=== PATIENT | female | born 1995 | race Caucasian/White ===

== ENCOUNTER 2024-01-31 12:50 | Emergency (ER) | payer OTHER ==
--- NOTE | 2024-01-31 12:58 | ERPHSYRPT ---
- History of Present Illness Time Seen by Provider: 01/31/24 12:57 Historian: patient Exam Limitations: no limitations Physician History: This is a thin 28-year-old white female patient who was sent to our emergency department from Dr. Wong office because of findings of tachycardia on EKG that was performed at their office. Patient states she has had chest pain and intermittent dizziness for 3 days in the upper chest. Upon arrival to our emergency department, patient is in no distress. Her room air oxygen saturation level is 99%. She has a heart rate in the 60s beats per minute on the monitor. She still has some mild upper bilateral chest achiness and pressure but not as bad as earlier today. Patient has a history of POTS syndrome and has had 2 cardiac arrests in the past. Her machine brush maker is Dr. Amos. She has an appointment to see Dr. Amos in 2 days Timing/Duration: day(s) (3), worse Quality: aching, pressure Location: other (Upper bilateral chest) Severity of Pain-Max: moderate Severity of Pain-Current: mild Modifying Factors: Improves With: nothing Associated Symptoms: dizziness Nitro Today/Relief: no nitro taken today Aspirin Treatment Today: 81 mg x 4, provided by ED Allergies/Adverse Reactions: codeine Allergy (Verified 01/31/24 12:56) mushroom Allergy (Verified 01/31/24 12:56) Travel Risk - International Travel Have you traveled outside of the country in past 3 weeks: No - Emerging Infectious Disease Are you exhibiting symptoms associated with any current EIDs: No - Review of Systems Constitutional: No Symptoms Eyes: No Symptoms Ears, Nose, & Throat: No Symptoms Respiratory: No Symptoms Cardiac: Chest Pain (Described as bilateral upper chest achiness and pressure without radiation) Abdominal/Gastrointestinal: No Symptoms Genitourinary Symptoms: No Symptoms Musculoskeletal: No Symptoms Skin: No Symptoms Neurological: Dizziness Psychological: No Symptoms Endocrine: No Symptoms Hematologic/Lymphatic: No Symptoms Immunological/Allergic: No Symptoms All Other Systems: Reviewed and Negative - Past Medical History Pertinent Past Medical History: Yes - Past Surgical History Past Surgical History: Yes - Nursing Vital Signs Nursing Vital Signs: Initial Vital Signs Temperature 98.5 F 01/31/24 12:56 Pulse Rate 60 01/31/24 12:56 Respiratory Rate 20 01/31/24 12:56 Blood Pressure 135/87 01/31/24 12:56 O2 Sat by Pulse Oximetry 100 05/06/24 12:56 Pain Scale Pain Intensity 5 - Physical Exam General Appearance: no apparent distress, alert, anxiety, thin Eye Exam: PERRL/EOMI, eyes nml inspection Ears, Nose, Throat Exam: normal ENT inspection, moist mucous membranes Neck Exam: normal inspection, non-tender, supple, full range of motion Respiratory Exam: normal breath sounds, chest tenderness, lungs clear (Mild up per bilateral chest pressure), airway intact, No respiratory distress Cardiovascular Exam: regular rate/rhythm, normal heart sounds, normal peripheral pulses Gastrointestinal/Abdomen Exam: soft, normal bowel sounds, No tenderness Pelvic Exam: not done Rectal Exam: not done Back Exam: normal inspection, normal range of motion, No CVA tenderness, No vertebral tenderness Extremity Exam: normal inspection, normal range of motion, pelvis stable Neurologic Exam: alert, oriented x 3, cooperative, machine stuffer automatic II-XII nml as tested, nml cerebellar function, nml station & gait, sensation nml Skin Exam: normal color, warm, dry Lymphatic Exam: No adenopathy SpO2 Interpretation: normal O2 Delivery: Room Air - Course Nursing assessment & vital signs reviewed: Yes EKG Interpreted by Me: RATE (55), Sinus Rhythm, NORMAL AXIS, NORMAL INTERVALS, NORMAL QRS, Other (Acute ischemic changes on this current twelve-lead EKG.) Ordered Tests: Active Orders 24 hr Category Date Time Status Rating Specialist STAT Care 01/31/24 13:09 Active EKG-ER Only STAT Care 01/31/24 13:08 Active IV Insertion STAT Care 01/31/24 13:08 Active Pulse Oximetry (ED) STAT Care 01/31/24 13:08 Active CHEST 1 VIEW (PORTABLE) Stat Exams 01/31/24 13:09 Completed CBC W DIFF Stat Lab 01/31/24 13:08 Completed CMP Stat Lab 01/31/24 13:00 Completed D-DIMER QUANTITATIVE Stat Lab 01/31/24 13:00 Completed MAGNESIUM Stat Lab 01/31/24 13:00 Completed TROPONIN Q4H Lab 01/31/24 17:15 Ordered TROPONIN Q4H Lab 01/31/24 21:15 Ordered TROPONIN Stat Lab 01/31/24 13:00 Completed Medication Summary Discontinued Medications Generic Name Dose Route Start Last Admin Trade Name Freq PRN Reason Stop Dose Admin Aspirin 324 mg 01/31/24 13:08 01/31/24 13:12 Aspirin 81 Mg Tab.Chew PO 01/31/24 13:09 324 mg STAT ONE Administration Aspirin Confirm 01/31/24 13:12 Aspirin 81 Mg Tab.Chew Administered 01/31/24 13:13 Dose 324 mg .ROUTE .STK-MED ONE Potassium Chloride 20 meq 01/31/24 14:54 Potassium Chloride Tab 10 Meq Tab PO 01/31/24 14:55 STAT ONE Lab/Rad Data: Laboratory Result Diagrams 01/31/24 13:08 01/31/24 13:00 Laboratory Results 01/31/24 01/31/24 01/31/24 Range/Units 13:08 13:00 13:00 WBC 5.6 (4.0-10.5) x10^3/uL RBC 4.59 (4.1-5.4) x10^6/uL Hgb 14.2 (12.0-16.0) g/dL Hct 42.4 (35-47) % MCV 92.4 (78-100) fL MCH 30.9 (26-32) pg MCHC 33.5 (32-36) g/dL RDW 11.9 (11.5-14.0) % Plt Count 275 (150-450) x10^3/uL MPV 10.0 (7.5-11.0) fL Gran % 60.0 (36.0-66.0) % Immature Gran % (Auto) 0.2 (0.00-0.4) % Nucleat RBC Rel Count 0.0 (0.00-0.1) % Eos # (Auto) 0.04 (0-0.5) x10^3/uL Immature Gran # (Auto) 0.01 (0.00-0.03) x10^3u/L Absolute Lymphs (auto) 1.63 (1.0-4.6) x10^3/uL Absolute Monos (auto) 0.54 (0.0-1.3) x10^3/uL Absolute Nucleated RBC 0.00 (0.00-0.01) x10^3u/L Lymphocytes % 29.2 (24.0-44.0) % Monocytes % 9.7 (0.0-12.0) % Eosinophils % 0.7 (0.00-5.0) % Basophils % 0.2 (0.0-0.4) % Absolute Granulocytes 3.35 (1.4-6.9) x10^3/uL Basophils # 0.01 (0-0.4) x10^3/uL D-Dimer < 0.19 (0.0-0.50) mg/L Sodium (135-145) mmol/L Potassium (3.5-5.1) mmol/L Chloride (98-107) mmol/L Carbon Dioxide (22-30) mmol/L Anion Gap (5-15) MEQ/L BUN (7-17) mg/dL Creatinine (0.52-1.04) mg/dL Estimated GFR ML/MIN Glucose (74-106) mg/dL Calcium (8.4-10.2) mg/dL Magnesium (1.6-2.3) mg/dL Total Bilirubin (0.2-1.3) mg/dL AST (14-36) U/L ALT (0-35) U/L Alkaline Phosphatase (38-126) U/L Troponin I < 0.012 (0.000-0.033) ng/mL Serum Total Protein (6.3-8.2) g/dL Albumin (3.5-5.0) g/dL 01/31/24 Range/Units 13:00 WBC (4.0-10.5) x10^3/uL RBC (4.1-5.4) x10^6/uL Hgb (12.0-16.0) g/dL Hct (35-47) % MCV (78-100) fL MCH (26-32) pg MCHC (32-36) g/dL RDW (11.5-14.0) % Plt Count (150-450) x10^3/uL MPV (7.5-11.0) fL Gran % (36.0-66.0) % Immature Gran % (Auto) (0.00-0.4) % Nucleat RBC Rel Count (0.00-0.1) % Eos # (Auto) (0-0.5) x10^3/uL Immature Gran # (Auto) (0.00-0.03) x10^3u/L Absolute Lymphs (auto) (1.0-4.6) x10^3/uL Absolute Monos (auto) (0.0-1.3) x10^3/uL Absolute Nucleated RBC (0.00-0.01) x10^3u/L Lymphocytes % (24.0-44.0) % Monocytes % (0.0-12.0) % Eosinophils % (0.00-5.0) % Basophils % (0.0-0.4) % Absolute Granulocytes (1.4-6.9) x10^3/uL Basophils # (0-0.4) x10^3/uL D-Dimer (0.0-0.50) mg/L Sodium 140 (135-145) mmol/L Potassium 3.3 L (3.5-5.1) mmol/L Chloride 103 (98-107) mmol/L Carbon Dioxide 25 (22-30) mmol/L Anion Gap 14.8 (5-15) MEQ/L BUN 10 (7-17) mg/dL Creatinine 0.62 (0.52-1.04) mg/dL Estimated GFR 123.6 ML/MIN Glucose 113 H (74-106) mg/dL Calcium 9.4 (8.4-10.2) mg/dL Magnesium 2.2 (1.6-2.3) mg/dL Total Bilirubin 0.70 (0.2-1.3) mg/dL AST 26 (14-36) U/L ALT 15 (0-35) U/L Alkaline Phosphatase 50 (38-126) U/L Troponin I (0.000-0.033) ng/mL Serum Total Protein 8.2 (6.3-8.2) g/dL Albumin 4.8 (3.5-5.0) g/dL - Progress Progress: improved, re-examined Air Movement: good Progress Note: 01/31/24 13:34 My medical decision making and the assignment of moderate complexity to this patient's medical issue is based on review of the patient's past medical history, review of the patient's medication list, review of patient drug allergy list, history present illness and physical findings on examination. The workup in this patient includes placement of intravenous line, repeat twelve-lead EKG, chest x-ray, troponin level, D-dimer level, CBC, CMP and magnesium level. Differential diagnosis includes myocardial infarction, arrhythmia issues, electrolyte abnormalities. 01/31/24 13:36 Chest x-ray was interpreted by the radiologist and I reviewed the impression. Impression states nonacute chest. 01/31/24 15:19 I interpreted the patient's laboratory data results. There is no evidence of any acute, emergent medical issue on today's workup. I spoke with Dr. Amos, the patient's machine brush maker who she has an appointment with in 2 days. I reviewed the patient history, chief complaint today, and workup results. He said no Holter monitor or repeat echocardiogram is necessary in this patient. He stated that she is young. He is aware of intermittent periods of tachycardia. They are making adjustments in her medication. She al so had an echocardiogram a year ago which showed no emergent or acute abnormality. She had a normal cardiac ejection fraction. He also will be seeing her in 2 days. 01/31/24 15:24 Patient was offered pain medication of her choice to help relieve her discomfort. She declines narcotic medication but does except nonnarcotic alternative. We will ask her whether or not she wants intravenous Toradol and oral Tylenol or oral ibuprofen and oral Tylenol Blood Culture(s) Obtained: No Antibiotics given: No Counseled pt/family regarding: lab results, diagnosis, need for follow-up, rad results Medical Desision Making - Diagnostic Testing Diagnostic test were ordered, analyzed, and reviewed by me: Yes Radiological Interpretation: Reviewed by me, Teleradiologist Report - Risk of complications Low Risk: Low risk of morbidity from additional dx testing or treatment - Departure Departure Disposition: Home Clinical Impression: Nonspecific chest pain Condition: Stable Critical Care Time: No Referrals: CEZAR WONG DO [Primary Care Provider] - Follow up/PCP as directed Additional Instructions: Take all your medications as prescribed. Keep your appointment with your machine brush maker that you already have scheduled for 02/02/2024.
[2024-01-31 13:06] VITALS: TEMP 98.5
[2024-01-31] MEDS: BABY ASPIRIN 81 MG CHEW PO ONE (13:12)
[2024-01-31] MEDS ORDERED: BABY ASPIRIN 81 MG CHEW ONE (13:12)
[2024-01-31 13:23] LABS: Absolute Neutrophil Ct (ANC) 3.35 x10^3/uL (1.4-6.9); BASOPHIL % 0.2 % (0.0-0.4); Basophil (Absolute #) 0.01 x10^3/uL (0-0.4); Eosinophil % 0.7 % (0.00-5.0); Eosinophil (Absolute #) 0.04 x10^3/uL (0-0.5); Hematocrit 42.4 % (35-47); Hemoglobin 14.2 g/dL (12.0-16.0); IMMATURE GRAN # 0.01 x10^3u/L (0.00-0.03); IMMATURE GRAN % 0.2 % (0.00-0.4); Lymphocyte (Absolute #) 1.63 x10^3/uL (1.0-4.6); Lymphocytes % 29.2 % (24.0-44.0); Mean Cell Volume 92.4 fL (78-100); Mean Corpuscular Hemoglobin 30.9 pg (26-32); Mean Corpuscular Hgb Concent. 33.5 g/dL (32-36); Monocyte (Absolute #) 0.54 x10^3/uL (0.0-1.3); Monocytes % 9.7 % (0.0-12.0); Platelet Count 275 x10^3/uL (150-450); Red Blood Count 4.59 x10^6/uL (4.1-5.4); Red Cell Distribution Width 11.9 % (11.5-14.0); White Blood Count 5.6 x10^3/uL (4.0-10.5)
--- NOTE | 2024-01-31 13:34 | XRAY ---
Indication: Chest pain. Short of breath. Dizziness. Comparison: None Portable chest inflated and clear. Heart and mediastinum structures within normal limits. Bony thorax intact with minimal scoliosis. Impression: Nonacute chest.
[2024-01-31 14:23] LABS: ALBUMIN 4.8 g/dL (3.5-5.0); ANION GAP 14.8 MEQ/L (5-15); BILIRUBIN,TOTAL 0.7 mg/dL (0.2-1.3); Calcium 9.4 mg/dL (8.4-10.2); Creatinine 1 0.62 mg/dL (0.52-1.04); EST GLOMERULAR FILTRATION RATE 123.6 ML/MIN; MAGNESIUM 2.2 mg/dL (1.6-2.3); Potassium 3.3 mmol/L (3.5-5.1); Total Protein 8.2 g/dL (6.3-8.2)
[2024-01-31] MEDS ORDERED: Klor Con ONE (15:22)
[2024-01-31] MEDS: Klor Con PO ONE (15:23)
[2024-01-31] MEDS ORDERED: Zofran 4 MG/2 ML VIAL ONE (15:32)
[2024-01-31] MEDS ORDERED: MORPHINE SULFATE 2 MG INJ ONE (15:32)
[2024-01-31] MEDS: MORPHINE SULFATE 2 MG INJ IV ONE (15:34)
[2024-01-31] MEDS: Zofran 4 MG/2 ML VIAL IV ONE (15:34)
[2024-01-31 15:52] VITALS: BP 126/72; PULSE 66; RESP 15; O2SAT 98
== END 2024-01-31 16:00 | disposition home or self-care (01) ==
LOC: ED 12:50
DX: R07.9 Chest pain, unspecified (principal); R42 Dizziness and giddiness; R00.0 Tachycardia, unspecified
CPT/HCPCS: 36000; 36415; 71045; 80053; 83735; 84484; 85025; 85379; 93005; 93041; 94760; 96374; 96375; 99284; J2270; J2405; A9270-GY

== ENCOUNTER 2024-03-06 22:28 | Observation (INO) | payer OTHER ==
--- NOTE | 2024-03-06 22:46 | ERPHSYRPT ---
- History of Present Illness Time Seen by Provider: 03/06/24 22:36 Source: patient Exam Limitations: no limitations Physician History: This is a 28-year-old white female patient who was brought in to the hospital by a relative by private vehicle. She has a history of pots disease and known bradycardia. She also has had cardiac arrest in the distant past. Her cardiol ogist is Dr. Amos and she did see him on 02/02/2024. Patient states that Dr. Amos had told her that there are no issues from the cardiac standpoint. Patient sees wellness ambassador (Dr. Dawson) and is soon to change her motor vehicle representative to Dr. Alexander. That appointment is not until March 2024. Patient was seen by her primary care provider earlier this morning. Patient was told to come to the emergency department but she refused. However, when her heart rate dropped to 36 bpm and she was feeling dizzy, she decided to come in to be evaluated. Patient had a twelve-lead EKG performed on 01/31/2024 which I reviewed and the patient had a heart rate of 55 and was in sinus bradycardia rhythm. There was no evidence of any acute ischemia on that twelve-lead EKG. She also underwent a Holter monitor which showed predominantly sinus bradycardia with an average heart rate of 51 bpm with rare PACs and PVCs. Patient is on metoprolol. She states they have tried to take her off metoprolol. It does not increase her low heart rate but, when she is off of the metoprolol, her heart rate jumps into a sinus tachycardia rhythm pattern. Patient currently does not have chest pain or dizziness. She is lying flat. Patient's room air oxygenation, saturation level is 99%. The patient's blood pressure reading on arrival is 144/77. The patient has a echocardiogram scheduled here at [facility] on 03/07/2024 at 1300. Timing/Duration: today Severity: moderate Associated Symptoms: other (Dizziness earlier), No shortness of breath, No chest pain Allergies/Adverse Reactions: codeine Allergy (Verified 03/06/24 22:34) mushroom Allergy (Verified 03/06/24 22:34) Home Medications: Aspirin EC 81 mg [Ecotrin 81 mg] 81 mg PO DAILY 01/31/24 [History] Ivabradine HCl [Corlanor] 5 mg PO BID 01/31/24 [History] Lurasidone HCl [Latuda] 20 mg PO DAILY 01/31/24 [History] Metoprolol Succinate 25 mg Xl* [Toprol-Xl 25MG Tablets] 25 mg PO BID 01/31/24 [History] Midodrine HCl [Proamatine] 5 mg PO TID 01/31/24 [History] Buspirone HCl 5 mg [Buspar 5 mg] 5 mg PO DAILY 03/06/24 [History] Cholecalciferol (Vitamin D3) [Vitamin D3] 125 mcg PO DAILY 03/06/24 [History] Hx Influenza Vaccination/Date Given: Yes Hx Pneumococcal Vaccination/Date Given: No Travel Risk - International Travel Have you traveled outside of the country in past 3 weeks: No - Emerging Infectious Disease Are you exhibiting symptoms associated with any current EIDs: No - Review of Systems Constitutional: No Symptoms Eyes: No Symptoms Ears, Nose, & Throat: No Symptoms Respiratory: No Symptoms Cardiac: No Symptoms Abdominal/Gastrointestinal: No Symptoms Genitourinary Symptoms: No Symptoms Musculoskeletal: No Symptoms Skin: No Symptoms Neurological: Dizziness Psychological: No Symptoms Endocrine: No Symptoms Hematologic/Lymphatic: No Symptoms Immunological/Allergic: No Symptoms All Other Systems: Reviewed and Negative - Past Medical History Pertinent Past Medical History: Yes Neurological History: No Pertinent History ENT History: No Pertinent History Cardiac History: No Pertinent History Respiratory History: No Pertinent History Endocrine Medical History: No Pertinent History Musculoskeletal History: No Pertinent History GI Medical History: No Pertinent History History: No Pertinent History Psycho-Social History: Anxiety, Attention Deficit Disorder, Depression Female Reproductive Disorders: No Pertinent History Other Medical History: Campuzano - Past Surgical History Past Surgical History: Yes Neuro Surgical History: No Pertinent History Cardiac: No Pertinent History Respiratory: No Pertinent History Gastrointestinal: No Pertinent History Genitourinary: No Pertinent History Musculoskeletal: No Pertinent History Female Surgical History: Dilation & Curettage - Social History Smoking Status: Never smoker Exposure to second hand smoke: No Drug Use: none - Social Determinants of Health Will the patient participate in the screening: Yes Do you worry about a steady place to live?: No In the past 12 months,have you had to go without utilities?: No Transportation Issues: No Has anyone in your support network made you feel unsafe?: No Have you or anyone in your house had to go without enough: No - Nursing Vital Signs Nursing Vital Signs: Initial Vital Signs Pulse Rate 38 L 03/06/24 22:35 Respiratory Rate 18 03/06/24 22:35 Blood Pressure 144/77 03/06/24 22:35 O2 Sat by Pulse Oximetry 100 03/06/24 22:35 Pain Scale Pain Intensity 0 - Physical Exam General Appearance: no apparent distress, alert, anxiety, thin Eye Exam: PERRL/EOMI, eyes nml inspection Ears, Nose, Throat Exam: normal ENT inspection, moist mucous membranes Neck Exam: normal inspection, non-tender, supple, full range of motion Respiratory Exam: normal breath sounds, lungs clear, No chest tenderness, No respiratory distress Gastrointestinal/Abdomen Exam: soft, normal bowel sounds, No tenderness Pelvic Exam: not done Rectal Exam: No not done Back Exam: normal inspection, normal range of motion, No CVA tenderness, No vertebral tenderness Extremity Exam: normal inspection, normal range of motion, pelvis stable Neurologic Exam: alert, oriented x 3, cooperative, stockroom worker II-XII nml as tested, normal mood/affect, nml cerebellar function, nml station & gait, sensation nml Skin Exam: normal color, warm, dry Lymphatic Exam: No adenopathy SpO2 Interpretation: normal O2 Delivery: Room Air - Course Nursing assessment & vital signs reviewed: Yes EKG Interpreted by Me: RATE (46), Sinus [place], NORMAL AXIS, NORMAL INTERVALS, NORMAL QRS, NORMAL ST-T, Other (No acute ischemic changes on today's twelve-lead EKG. the QTc is 384) Ordered Tests: Active Orders 24 hr Category Date Time Status Wage Conciliator STAT Care 03/06/24 22:56 Active EKG-ER Only STAT Care 03/06/24 22:55 Active IV Insertion STAT Care 03/06/24 22:55 Active Pulse Oximetry (ED) STAT Care 03/06/24 22:55 Active CBC W DIFF Stat Lab 03/06/24 23:00 Completed CMP Stat Lab 03/06/24 23:00 Completed HCG QUALITATIVE, SERUM Stat Lab 03/06/24 23:00 Completed MAGNESIUM Stat Lab 03/06/24 23:00 Completed NT PRO BNPII Stat Lab 03/06/24 23:00 Completed TROPONIN Q4H Lab 03/06/24 23:00 Completed TROPONIN Q4H Lab 03/07/24 03:00 Ordered TROPONIN Q4H Lab 03/07/24 07:00 Ordered UA W/RFX UR CULTURE Stat Lab 03/06/24 23:18 Received Lab/Rad Data: Laboratory Result Diagrams 03/06/24 23:00 03/06/24 23:00 Laboratory Results 03/06/24 03/06/24 03/06/24 Range/Units 23:00 23:00 23:00 WBC (3.98-10.04) x10^3/uL RBC (3.93-5.22) x10^6/uL Hgb (11.2-15.7) g/dL Hct (34.1-44.9) % MCV (79.4-94.8) fL MCH (25.6-32.2) pg MCHC (32.2-35.5) g/dL RDW (11.7-14.4) % Plt Count (182-369) x10^3/uL MPV (9.4-12.3) fL Gran % (34.0-71.1) % Immature Gran % (Auto) (0.001-0.429) % Nucleat RBC Rel Count (0.00-0.2) % Eos # (Auto) (0.04-0.36) x10^3/uL Immature Gran # (Auto) (0.001-0.031) x10^3u/L Absolute Lymphs (auto) (1.18-3.74) x10^3/uL Absolute Monos (auto) (0.24-0.86) x10^3/uL Absolute Nucleated RBC (0.00-0.012) x10^3u/L Lymphocytes % (19.3-51.7) % Monocytes % (4.7-12.5) % Eosinophils % (0.7-5.8) % Basophils % (0.1-1.2) % Absolute Granulocytes (1.56-6.13) x10^3/uL Basophils # (0.01-0.08) x10^3/uL Sodium 138 (135-145) mmol/L Potassium 4.0 (3.5-5.1) mmol/L Chloride 105 (98-107) mmol/L Carbon Dioxide 26 (22-30) mmol/L Anion Gap 11.1 (5-15) MEQ/L BUN 15 (7-17) mg/dL Creatinine 0.79 (0.52-1.04) mg/dL Estimated GFR 103.8 ML/MIN Glucose 94 (74-106) mg/dL Calcium 9.7 (8.4-10.2) mg/dL Magnesium 2.2 (1.6-2.3) mg/dL Total Bilirubin 0.70 (0.2-1.3) mg/dL AST 21 (14-36) U/L ALT 14 (0-35) U/L Alkaline Phosphatase 50 (38-126) U/L Troponin I < 0.012 (0.000-0.033) ng/mL NT-Pro-B Natriuret Pep 79.5 (<300) pg/mL Serum Total Protein 7.6 (6.3-8.2) g/dL Albumin 4.5 (3.5-5.0) g/dL Serum HCG, Qual NEGATIVE (NEGATIVE) 03/06/24 Range/Units 23:00 WBC 6.4 (3.98-10.04) x10^3/uL RBC 4.27 (3.93-5.22) x10^6/uL Hgb 13.4 (11.2-15.7) g/dL Hct 40.3 (34.1-44.9) % MCV 94.4 (79.4-94.8) fL MCH 31.4 (25.6-32.2) pg MCHC 33.3 (32.2-35.5) g/dL RDW 12.0 (11.7-14.4) % Plt Count 305 (182-369) x10^3/uL MPV 9.5 (9.4-12.3) fL Gran % 50.7 (34.0-71.1) % Immature Gran % (Auto) 0.3 (0.001-0.429) % Nucleat RBC Rel Count 0.0 (0.00-0.2) % Eos # (Auto) 0.06 (0.04-0.36) x10^3/uL Immature Gran # (Auto) 0.02 (0.001-0.031) x10^3u/L Absolute Lymphs (auto) 2.36 (1.18-3.74) x10^3/uL Absolute Monos (auto) 0.68 (0.24-0.86) x10^3/uL Absolute Nucleated RBC 0.00 (0.00-0.012) x10^3u/L Lymphocytes % 37.1 (19.3-51.7) % Monocytes % 10.7 (4.7-12.5) % Eosinophils % 0.9 (0.7-5.8) % Basophils % 0.3 (0.1-1.2) % Absolute Granulocytes 3.22 (1.56-6.13) x10^3/uL Basophils # 0.02 (0.01-0.08) x10^3/uL Sodium (135-145) mmol/L Potassium (3.5-5.1) mmol/L Chloride (98-107) mmol/L Carbon Dioxide (22-30) mmol/L Anion Gap (5-15) MEQ/L BUN (7-17) mg/dL Creatinine (0.52-1.04) mg/dL Estimated GFR ML/MIN Glucose (74-106) mg/dL Calcium (8.4-10.2) mg/dL Magnesium (1.6-2.3) mg/dL Total Bilirubin (0.2-1.3) mg/dL AST (14-36) U/L ALT (0-35) U/L Alkaline Phosphatase (38-126) U/L Troponin I (0.000-0.033) ng/mL NT-Pro-B Natriuret Pep (<300) pg/mL Serum Total Protein (6.3-8.2) g/dL Albumin (3.5-5.0) g/dL Serum HCG, Qual (NEGATIVE) - Progress Progress: improved, re-examined Progress Note: 03/06/24 22:53 My medical decision making and the assignment of moderate to high complexity on this patient's medical issue today is based on review of the patient's past medical history, review of the patient's medication list, review the patient drug allergy list, review of the patient's recent Holter monitor and twelve-lead EKG results. In addition we took into account the patient's physical findings on examination and history of present illness. The workup in this patient is placement of intravenous line, twelve-lead EKG, CBC, CMP, magnesium level, troponin level, BNP level. Differential diagnosis includes but is not limited to electrolyte abnormalities, arrhythmia, myocardial infarction 03/07/24 00:11 I interpreted the patient's laboratory data results. Based on the laboratory data results, this patient does not have an acute, emergent medical issue. The patient does have postural orthostatic tachycardia syndrome (POTS). She classically fits the picture. We will hold her cardiac meds and place her in observation on telemetry. I spoke with Dr. Patel, telehospitalist. He agrees with this plan. Patient will get her echocardiogram today as scheduled. Counseled pt/family regarding: lab results, diagnosis Medical Desision Making - Independent Historian Additional History obtained from: Relative/friend - Diagnostic Testing Diagnostic test were ordered, analyzed, and reviewed by me: Yes - Risk of complications The pt has a high risk of morbidity or mortality based on: Decision regarding hospitilization or escalation of hosp level of care - Departure Departure Disposition: Observation Clinical Impression: Symptomatic bradycardia Condition: Stable Critical Care Time: No Referrals: TARIK PERKINS NP [Primary Care Provider] - Follow up/PCP as directed
[2024-03-06 23:04] LABS: Absolute Neutrophil Ct (ANC) 3.22 x10^3/uL (1.56-6.13); BASOPHIL % 0.3 % (0.1-1.2); Basophil (Absolute #) 0.02 x10^3/uL (0.01-0.08); Eosinophil % 0.9 % (0.7-5.8); Eosinophil (Absolute #) 0.06 x10^3/uL (0.04-0.36); Hematocrit 40.3 % (34.1-44.9); Hemoglobin 13.4 g/dL (11.2-15.7); IMMATURE GRAN # 0.02 x10^3u/L (0.001-0.031); IMMATURE GRAN % 0.3 % (0.001-0.429); Lymphocyte (Absolute #) 2.36 x10^3/uL (1.18-3.74); Lymphocytes % 37.1 % (19.3-51.7); Mean Cell Volume 94.4 fL (79.4-94.8); Mean Corpuscular Hemoglobin 31.4 pg (25.6-32.2); Mean Corpuscular Hgb Concent. 33.3 g/dL (32.2-35.5); Mean Platelet Volume 9.5 fL (9.4-12.3); Monocyte (Absolute #) 0.68 x10^3/uL (0.24-0.86); Monocytes % 10.7 % (4.7-12.5); Neutrophil % 50.7 % (34.0-71.1); Platelet Count 305 x10^3/uL (182-369); Red Blood Count 4.27 x10^6/uL (3.93-5.22); White Blood Count 6.4 x10^3/uL (3.98-10.04)
[2024-03-06 23:23] LABS: HCG SERUM TEST NEGATIVE (NEGATIVE)
[2024-03-06 23:27] LABS: ALBUMIN 4.5 g/dL (3.5-5.0); ANION GAP 11.1 MEQ/L (5-15); BILIRUBIN,TOTAL 0.7 mg/dL (0.2-1.3); Calcium 9.7 mg/dL (8.4-10.2); Creatinine 1 0.79 mg/dL (0.52-1.04); EST GLOMERULAR FILTRATION RATE 103.8 ML/MIN; MAGNESIUM 2.2 mg/dL (1.6-2.3); NT PRO BNPII 79.5 pg/mL (<300); Total Protein 7.6 g/dL (6.3-8.2)
[2024-03-07] MEDS: Sodium Chloride 0.9% 1000 ML 1,000 ML IV SCH (00:33)
[2024-03-07 00:44] LABS: Appearance Clear (Clear); Bacteria None Seen /HPF (None Seen); Bilirubin Negative (Negative); Blood Negative (Negative); Epithelial Cells None Seen /HPF (None Seen); Glucose, Urine Negative (Negative); Hyaline Casts NONE SEEN /LPF (0-2); Ketones Negative (Negative); Leukocyte Esterase Negative (Negative); Nitrite Negative (Negative); Ph 7.5 (4.6-8.0); Protein,Urine Dip Negative (Negative); RBC 0-2 /HPF (0-5); Specific Gravity <=1.005 (1.005-1.030); Urobilinogen 0.2 mg/dL (0.2); WBC 0-2 /HPF (0-5)
[2024-03-07 00:45] LABS: ADD URINE CULTURE? NO (NO)
--- NOTE | 2024-03-07 01:29 | PCM.HP ---
History of Present Illness - Chief Complaint Chief Complaint: Symptomatic bradycardia Date: 03/07/24 History of Present Illness: 28-year-old woman with history of Postural orthostatic tachycardia syndrome (POTS), anxiety, depression, PTSD, who presents with persistent dizziness and nausea with severe bradycardia. Patient was diagnosed with POTS little over a year ago, and has slowly been added on more medications, initially metoprolol, the midodrine, and 3 months ago ivabradine. She feels like she had the best improvement after starting the ivabradine. She has a baseline heart rate in the 50s, but did not have many episodes of going up into the 180s on that medication regimen. However, starting 5 weeks ago, she began to have episodes of dizziness, nausea, diaphoresis, and dyspnea. She discussed with her cut roll machine operator at that time, but noted that there were a lot of anxiety and stressors in her life at that time. However, her symptoms have not improved, and her baseline heart rate has dropped down into the 40s, occasionally into the 30s. She attempted to stop her medications, but her baseline heart rate did not improve, and she again had recurrent episodes of tachycardia up to the 180s. Last week, she saw her PCP when she was having leg edema, and completed a 5-day course of Bumex ending on 03/04, with resolution of her leg edema. However, she continues to have severe constant dizziness with movement associated with nausea. 2 days ago, she had an episode of presyncope where her friend noted that her distal limbs appeared to be blue. She went to her PCP today and was told to come to the ED because her heart rate was sinus bradycardia in the 30s. On arrival to the ED, her blood pressure has been normal, but her heart rate has been consistently in the 40s, with sinus bradycardia on EKG. She feels stable in bed, but gets dizzy whenever sitting or standing. Denies any recent changes to her medications since starting the ivabradine 3 months ago. Denies fevers, chills, headaches, sore throat, cough, chest pain, diarrhea, or dysuria. No recent changes in diet, no sick contacts, and no recent travel. - Review of Systems Additional Findings: 12 point ROS performed and negative except as per HPI. Medications & Allergies Home Medications: Home Medication List Aspirin EC 81 mg [Ecotrin 81 mg] 81 mg PO DAILY 01/31/24 [History Confirmed 03/06/24] Ivabradine HCl [Corlanor] 5 mg PO BID 01/31/24 [History Confirmed 03/06/24] Lurasidone HCl [Latuda] 20 mg PO DAILY 01/31/24 [History Confirmed 03/06/24] Metoprolol Succinate 25 mg Xl* [Toprol-Xl 25MG Tablets] 25 mg PO BID 01/31/24 [History Confirmed 03/06/24] Midodrine HCl [Proamatine] 5 mg PO TID 01/31/24 [History Confirmed 03/06/24] Buspirone HCl 5 mg [Buspar 5 mg] 5 mg PO DAILY 03/06/24 [History Confirmed 03/06/24] Cholecalciferol (Vitamin D3) [Vitamin D3] 125 mcg PO DAILY 03/06/24 [History Confirmed 03/06/24] Allergies/Adverse Reactions: Allergies Allergy/AdvReac Type Severity Reaction Status Date / Time codeine Allergy Verified 03/06/24 22:34 mushroom Allergy Verified 03/06/24 22:34 - Past Medical History Past Medical History: Yes Neurological History: No Pertinent History ENT History: No Pertinent History Cardiac History: Other (POTS. 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.) Respiratory History: No Pertinent History Endocrine Medical History: No Pertinent History Musculoskelatal History: No Pertinent History GI Medical History: No Pertinent History History: No Pertinent History Pyscho-Social History: Anxiety, Attention Deficit Disorder, Depression Reproductive Disorders: No Pertinent History - Female History Hx Last Menstrual Period: 03/01/24 Are you now?: No - Past Surgical History Past Surgical History: Yes Neuro Surgical History: No Pertinent History Cardiac History: No Pertinent History Respiratory Surgery: No Pertinent History GI Surgical History: Cholecystectomy Genitourinary Surgical Hx: No Pertinent History Musculskeletal Surgical Hx: No Pertinent History Female Surgical History: Dilation & Curettage Significant Family History: other (Maternal grandmother of sudden cardiac arrest at age 42. Mother with coronary disease.) - Social History Smoking Status: Never smoker Exposure to second hand smoke: No Alcohol: None Drug Use: none - Social Determinants of Health Will the patient participate in the screening: Yes Do you worry about a steady place to live?: No Do you have any problems with any of the following?: No known problems In the past 12 months,have you had to go without utilities?: No Have you or anyone in your house had to go without enough: No Transportation Issues: No Has anyone in your support network made you feel unsafe?: No Does the patient want assistance with any of the above?: No - Physical Exam Vital Signs: Vital Signs - 24 hr Temp Pulse Pulse Resp BP BP Pulse Ox 03/07/24 00:48 97.7 F 48 L 16 135/72 100 03/07/24 00:27 100 03/07/24 00:15 47 L 15 100/55 99 03/07/24 00:00 38 L 13 93/60 98 03/06/24 23:52 40 L 03/06/24 23:30 40 L 14 106/57 99 03/06/24 23:01 40 L 8 L 110/67 99 03/06/24 22:39 98.2 F 46 L 15 144/77 100 03/06/24 22:35 38 L 18 144/77 100 GEN: Lying in bed in no acute distress NEURO: No focal deficits CV: Bradycardic but regular. 2 out of 6 systolic murmur at the left upper sternal border. No edema. PULM: Clear to auscultation bilaterally, no work of breathing, on room air ABD: Soft, non-distended, normoactive bowel sounds PSYCH: Alert, oriented x3 Results - Labs Lab/Micro Results: Lab Results-Last 24 Hours 03/06/24 03/06/24 03/06/24 Range/Units 23:00 23:00 23:00 WBC 6.4 (3.98-10.04) x10^3/uL RBC 4.27 (3.93-5.22) x10^6/uL Hgb 13.4 (11.2-15.7) g/dL Hct 40.3 (34.1-44.9) % MCV 94.4 (79.4-94.8) fL MCH 31.4 (25.6-32.2) pg MCHC 33.3 (32.2-35.5) g/dL RDW 12.0 (11.7-14.4) % Plt Count 305 (182-369) x10^3/uL MPV 9.5 (9.4-12.3) fL Gran % 50.7 (34.0-71.1) % Immature Gran % (Auto) 0.3 (0.001-0.429) % Nucleat RBC Rel Count 0.0 (0.00-0.2) % Eos # (Auto) 0.06 (0.04-0.36) x10^3/uL Immature Gran # (Auto) 0.02 (0.001-0.031) x10^3u/L Absolute Lymphs (auto) 2.36 (1.18-3.74) x10^3/uL Absolute Monos (auto) 0.68 (0.24-0.86) x10^3/uL Absolute Nucleated RBC 0.00 (0.00-0.012) x10^3u/L Lymphocytes % 37.1 (19.3-51.7) % Monocytes % 10.7 (4.7-12.5) % Eosinophils % 0.9 (0.7-5.8) % Basophils % 0.3 (0.1-1.2) % Absolute Granulocytes 3.22 (1.56-6.13) x10^3/uL Basophils # 0.02 (0.01-0.08) x10^3/uL Sodium (135-145) mmol/L Potassium (3.5-5.1) mmol/L Chloride (98-107) mmol/L Carbon Dioxide (22-30) mmol/L Anion Gap (5-15) MEQ/L BUN (7-17) mg/dL Creatinine (0.52-1.04) mg/dL Estimated GFR ML/MIN Glucose (74-106) mg/dL Calcium (8.4-10.2) mg/dL Magnesium (1.6-2.3) mg/dL Total Bilirubin (0.2-1.3) mg/dL AST (14-36) U/L ALT (0-35) U/L Alkaline Phosphatase (38-126) U/L Troponin I < 0.012 (0.000-0.033) ng/mL NT-Pro-B Natriuret Pep (<300) pg/mL Serum Total Protein (6.3-8.2) g/dL Albumin (3.5-5.0) g/dL Serum HCG, Qual NEGATIVE (NEGATIVE) Urine Color (Yellow) Urine Appearance (Clear) Urine pH (4.6-8.0) Ur Specific [place] (1.005-1.030) Urine Protein (Negative) Urine Glucose (UA) (Negative) mg/dL Urine Ketones (Negative) Urine Blood (Negative) Urine Nitrite (Negative) Urine Bilirubin (Negative) Urine Urobilinogen (0.2) mg/dL Ur Leukocyte Esterase (Negative) U Hyaline Cast (Auto) (0-2) /LPF Urine Microscopic RBC (0-5) /HPF Urine Microscopic WBC (0-5) /HPF Ur Epithelial Cells (None Seen) /HPF Urine Bacteria (None Seen) /HPF Urine Culture Reflexed (NO) 03/06/24 03/06/24 Range/Units 23:00 23:18 WBC (3.98-10.04) x10^3/uL RBC (3.93-5.22) x10^6/uL Hgb (11.2-15.7) g/dL Hct (34.1-44.9) % MCV (79.4-94.8) fL MCH (25.6-32.2) pg MCHC (32.2-35.5) g/dL RDW (11.7-14.4) % Plt Count (182-369) x10^3/uL MPV (9.4-12.3) fL Gran % (34.0-71.1) % Immature Gran % (Auto) (0.001-0.429) % Nucleat RBC Rel Count (0.00-0.2) % Eos # (Auto) (0.04-0.36) x10^3/uL Immature Gran # (Auto) (0.001-0.031) x10^3u/L Absolute Lymphs (auto) (1.18-3.74) x10^3/uL Absolute Monos (auto) (0.24-0.86) x10^3/uL Absolute Nucleated RBC (0.00-0.012) x10^3u/L Lymphocytes % (19.3-51.7) % Monocytes % (4.7-12.5) % Eosinophils % (0.7-5.8) % Basophils % (0.1-1.2) % Absolute Granulocytes (1.56-6.13) x10^3/uL Basophils # (0.01-0.08) x10^3/uL Sodium 138 (135-145) mmol/L Potassium 4.0 (3.5-5.1) mmol/L Chloride 105 (98-107) mmol/L Carbon Dioxide 26 (22-30) mmol/L Anion Gap 11.1 (5-15) MEQ/L BUN 15 (7-17) mg/dL Creatinine 0.79 (0.52-1.04) mg/dL Estimated GFR 103.8 ML/MIN Glucose 94 (74-106) mg/dL Calcium 9.7 (8.4-10.2) mg/dL Magnesium 2.2 (1.6-2.3) mg/dL Total Bilirubin 0.70 (0.2-1.3) mg/dL AST 21 (14-36) U/L ALT 14 (0-35) U/L Alkaline Phosphatase 50 (38-126) U/L Troponin I (0.000-0.033) ng/mL NT-Pro-B Natriuret Pep 79.5 (<300) pg/mL Serum Total Protein 7.6 (6.3-8.2) g/dL Albumin 4.5 (3.5-5.0) g/dL Serum HCG, Qual (NEGATIVE) Urine Color Yellow (Yellow) Urine Appearance Clear (Clear) Urine pH 7.5 (4.6-8.0) Ur Specific [place] <=1.005 (1.005-1.030) Urine Protein Negative (Negative) Urine Glucose (UA) Negative (Negative) mg/dL Urine Ketones Negative (Negative) Urine Blood Negative (Negative) Urine Nitrite Negative (Negative) Urine Bilirubin Negative (Negative) Urine Urobilinogen 0.2 (0.2) mg/dL Ur Leukocyte Esterase Negative (Negative) U Hyaline Cast (Auto) NONE SEEN (0-2) /LPF Urine Microscopic RBC 0-2 (0-5) /HPF Urine Microscopic WBC 0-2 (0-5) /HPF Ur Epithelial Cells None Seen (None Seen) /HPF Urine Bacteria None Seen (None Seen) /HPF Urine Culture Reflexed NO (NO) - Other Procedures and Tests Respiratory Therapy 03/07/24 00:27 EKG REPEAT IN AM Assessment/Plan (1) Symptomatic bradycardia Current Visit: Yes Status: Acute Assessment & Plan: 28-year-old woman with history of POTS and anxiety/depression/PTSD, who presents with symptomatic bradycardia. ## Bradycardia, POTSthe hallmark of POTS is labile heart rate with over heightened autonomic response. In this patient, it appears she had good control of her tachycardic response on her regimen of metoprolol, midodrine, and ivabradine. However, she has now developed symptomatic bradycardia, with a resting heart rate in the high 30s to low 40s. Stopping her medications completely appears to have worsened her intermittent tachycardia. However, she is not tolerating the bradycardia the way she was previously. There are no obvious changes in her environment, diet, or comorbidities that would seem to explain this. However, POTS is difficult as emotional stressors can have a large impact on the autonomic dysregulation that is the heart of the disease, and these stressors are variable by nature. Admit to observation, monitor under telemetry Will hold metoprolol and ivabradine for now I suspect patient will need some of the medication for control of her tachycardic response, and can consider decreasing her ivabradine to 2.5 mg twice daily. Consider telemetry cardiology consultation in the morning if heart rate not improving. Continue home midodrine ## Anxiety and depression currently appear to be fairly well-controlled. Continue home lurasidone 20 mg daily, BuSpar 5 mg daily CODE STATUS: Full code Diet: Regular Prophylaxis: Low risk, encourage ambulation Code(s): R00.1 - BRADYCARDIA, UNSPECIFIED Telemedicine Encounter - Telemedicine Encounter Telemedicine Encounter: The entirety of this encounter was performed via Telemedicine"
[2024-03-07] MEDS ORDERED: PROVENTIL 2.5 MG/3 ML NEB IH PRN (03:02)
[2024-03-07 03:53] LABS: Calcium 9.2 mg/dL (8.4-10.2); Creatinine 1 0.65 mg/dL (0.52-1.04); EST GLOMERULAR FILTRATION RATE 122.2 ML/MIN; Potassium 3.5 mmol/L (3.5-5.1)
[2024-03-07 03:57] LABS: Hematocrit 40.2 % (34.1-44.9); Hemoglobin 13.6 g/dL (11.2-15.7); Mean Cell Volume 93.1 fL (79.4-94.8); Mean Corpuscular Hemoglobin 31.5 pg (25.6-32.2); Mean Corpuscular Hgb Concent. 33.8 g/dL (32.2-35.5); Mean Platelet Volume 9.9 fL (9.4-12.3); Platelet Count 306 x10^3/uL (182-369); Red Blood Count 4.32 x10^6/uL (3.93-5.22); Red Cell Distribution Width 11.9 % (11.7-14.4); White Blood Count 6.8 x10^3/uL (3.98-10.04)
[2024-03-07] MEDS ORDERED: MEDICATION INTERVENTION MC SCH (07:15)
[2024-03-07] MEDS: Zofran 4 MG/2 ML VIAL IV PRN (07:41)
[2024-03-07] MEDS: VITAMIN D PO SCH (09:52)
[2024-03-07] MEDS: ECOTRIN 81 MG PO SCH (09:53)
[2024-03-07] MEDS: BUSPAR 5 MG PO SCH (09:55)
[2024-03-07] MEDS ORDERED: PROAMATINE PO SCH (10:00)
[2024-03-07] MEDS ORDERED: LURASIDONE HCL 20 MG PO SCH (10:00)
[2024-03-07] MEDS ORDERED: NON-FORMULARY ITEM (Cholecalciferol (Vitamin D3) [Vitamin D3] 125 MCG Capsule) PO SCH (10:00)
[2024-03-07] MEDS: PROAMATINE PO SCH (11:41)
--- NOTE | 2024-03-07 12:30 | PCM.NOTE ---
28-year-old woman with history of Postural orthostatic tachycardia syndrome (POTS), anxiety, depression, PTSD, who presents with persistent dizziness and nausea with severe bradycardia. Patient was diagnosed with POTS little over a year ago, and has slowly been added on more medications, initially metoprolol, the midodrine, and 3 months ago ivabradine. She feels like she had the best improvement after starting the ivabradine. She has a baseline heart rate in the 50s, but did not have many episodes of going up into the 180s on that medication regimen. However, starting 5 weeks ago, she began to have episodes of dizziness, nausea, diaphoresis, and dyspnea. She discussed with her earth auger operator at that time, but noted that there were a lot of anxiety and stressors in her life at that time. However, her symptoms have not improved, and her baseline heart rate has dropped down into the 40s, occasionally into the 30s. She attempted to stop her medications, but her baseline heart rate did not improve, and she again had recurrent episodes of tachycardia up to the 180s. Last week, she saw her PCP when she was having leg edema, and completed a 5-day course of Bumex ending on 03/04, with resolution of her leg edema. However, she continues to have severe constant dizziness with movement associated with nausea. 2 days ago, she had an episode of presyncope where her friend noted that her distal limbs appeared to be blue. Patient presented to ED under the advisement of her PC due to sinus bradycardia with her HR in the 30s. On arrival to the ED, her blood pressure has been normal, but her heart rate has been consistently in the 40s, with sinus bradycardia on EKG. She feels stable in bed, but gets dizzy whenever sitting or standing. Denies any recent changes to her medications since starting the ivabradine 3 months ago. Denies fevers, chills, headaches, sore throat, cough, chest pain, diarrhea, or dysuria. No recent changes in diet, no sick contacts, and no recent travel. 03/07: Met with patient bedside. Endorses CP for the past 5 weeks. She reports CP is constant, substernal, non-radiating with associated symptoms of nausea shortness of breath, and diaphoresis- she has been prescribed nitro, but later told to discontinue due to her bradycardia. Cardiology has been consulted, appreciate recs. Discussed case with Dr. Rell Alexander (cardiology EP) as patient is scheduled OP in March. Will attempt to move patient's appointment up for further evaluation. No new recs at this time. She additionally reports episodes of BLE and BUE intermittently going numb, cold, and turning blue. She has been evaluated for this and was told she has Raynauds - she is unable to tolerate treatment with CCB. Plan for cardiology to evaluate patient, move EP appt up, will screen for homa's/lupus - increase midodrine to 10mg TID.
[2024-03-07] MEDS: TYLENOL 325 MG PO PRN (12:42)
--- NOTE | 2024-03-07 13:21 | PCM.CONS ---
History of Present Illness - Date of Consult Date of Encounter: 03/07/24 Consulting Staff Nurse: TED RUTLEDGE MD Requesting Provider: Attending Provider: PIPPA GREEN MD Primary Care Provider: PCP: TARIK PERKINS NP Consent was: Given for this tele-med encounter - Consult Narrative Reason for Consult: POTS HPI: Patient is a 28F w/ PMHx of POTS, anxiety, depression, PTSD who presents for evaluation of bradycardia with nausea and dizziness. The patient was diagnosed with POTS in January 2023 and has been undergoing therapy with metoprolol, midodrine and more recently ivabradine. This latter med was added ~3.5 months ago. With these agents, she had decreased numbers of episodes of tachycardia with heart rates into the 180s. Her baseline rate is in the 50-60s. She reports about a month ago, she noticed her heart rate would fall into the 30s at times (where's a apple watch so monitors her HR). These episodes would be associated with fee ling unwell with nausea and dizziness. She also reports easy fatigability on a daily basis. She discussed with her outpatient information support project manager who felt perhaps symptoms were due to recent life stressors. The week of February 06, she completely stopped her meto, midodrine, and ivabradine to see if the bradycardic episodes improved. They did not and she started having more frequent episodes of tachycardia into the 180s. She was ultimately told by her PCP to present for further evaluation should her symptoms and bradycardia persist and thus she presented for further evaluation after a particularly bothersome episode. Please refer to excellent HPI for further details of this patient's recent history. Of note, she has an upcoming appointment with an EP who also specializes in POTS on April 05. cc:: The requesting physician will be sent a copy of the consult. Review of Systems - ROS Constitutional: Lethargy, Malaise Eyes (ROS): No Symptoms Ears, Nose, & Throat: No Symptoms Respiratory: No Symptoms Cardiac: Edema, Other (presyncope) Abdominal/Gastrointestinal: No Symptoms Genitourinary Symptoms: No Symptoms Musculoskeletal: No Symptoms Skin: No Symptoms Neurological: Dizziness, Lethargy Psychological: Anxiety, Depression Endocrine: No Symptoms Hematologic/Lymphatic: No Symptoms Immunological/Allergic: No Symptoms - Past Medical History Past Medical History: Yes Neurological History: No Pertinent History ENT History: No Pertinent History Cardiac History: Other (POTS. 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.) Respiratory History: No Pertinent History Endocrine Medical History: No Pertinent History Musculoskelatal History: No Pertinent History GI Medical History: No Pertinent History History: No Pertinent History Pyscho-Social History: Anxiety, Attention Deficit Disorder, Depression Reproductive Disorders: No Pertinent History Comment: Campuzano - Female History Hx Last Menstrual Period: 03/01/24 Are you now?: No - Past Surgical History Past Surgical History: Yes Neuro Surgical History: No Pertinent History Cardiac History: No Pertinent History Respiratory Surgery: No Pertinent History GI Surgical History: Cholecystectomy Genitourinary Surgical Hx: No Pertinent History Musculskeletal Surgical Hx: No Pertinent History Female Surgical History: Dilation & Curettage Significant Family History: other (Maternal grandmother of sudden cardiac arrest at age 42. Mother with coronary disease.) - Social History Smoking Status: Never smoker Exposure to second hand smoke: No Alcohol: None Drug Use: none - Social Determinants of Health Will the patient participate in the screening: Yes Do you worry about a steady place to live?: No Do you have any problems with any of the following?: No known problems In the past 12 months,have you had to go without utilities?: No Have you or anyone in your house had to go without enough: No Transportation Issues: No Has anyone in your support network made you feel unsafe?: No Does the patient want assistance with any of the above?: No Medications & Allergies Home Medications: Home Medication List Aspirin EC 81 mg [Ecotrin 81 mg] 81 mg PO DAILY 01/31/24 [History Confirmed 03/06/24] Ivabradine HCl [Corlanor] 5 mg PO BID 01/31/24 [History Confirmed 03/06/24] Lurasidone HCl [Latuda] 20 mg PO DAILY 01/31/24 [History Confirmed 03/06/24] Metoprolol Succinate 25 mg Xl* [Toprol-Xl 25MG Tablets] 25 mg PO BID 01/31/24 [History Confirmed 03/06/24] Midodrine HCl [Proamatine] 5 mg PO TID 01/31/24 [History Confirmed 03/06] Buspirone HCl 5 mg [Buspar 5 mg] 5 mg PO DAILY 03/06/24 [History Confirmed 03/06/24] Cholecalciferol (Vitamin D3) [Vitamin D3] 125 mcg PO DAILY 03/06/24 [History Confirmed 03/06/24] Allergies/Adverse Reactions: Allergies Allergy/AdvReac Type Severity Reaction Status Date / Time codeine Allergy Verified 03/06/24 22:34 mushroom Allergy Verified 03/06/24 22:34 Exam - Vitals Vital Signs: Vital Signs - 24 hr Temp Pulse Pulse Resp BP BP Pulse Ox 03/07/24 11:41 98.2 F 51 L 20 124/65 96 03/07/24 08:10 46 L 16 95 03/07/24 07:33 98.6 F 46 L 16 91/51 99 03/07/24 04:00 97.7 F 46 L 16 99/56 98 03/07/24 01:00 44 L 16 100 03/07/24 00:48 97.7 F 48 L 16 135/72 100 03/07/24 00:27 100 03/07/24 00:15 47 L 15 100/55 99 03/07/24 00:00 38 L 13 93/60 98 03/06/24 23:52 40 L 03/06/24 23:30 40 L 14 106/57 99 03/06/24 23:01 40 L 8 L 110/67 99 03/06/24 22:39 98.2 F 46 L 15 144/77 100 03/06/24 22:35 38 L 18 144/77 100 General:: alert and oriented x 4, no acute distress HEENT: EOMI, anicteric sclera, mm moist and pink Cardiovascular Exam: murmur, bradycardia, other (occ ectopy. No edema) Respiratory Exam: normal breath sounds, lungs clear SpO2: 96 Gastrointestinal/Abdomen Exam: soft, normal bowel sounds Skin Exam: normal color, warm Extremity Exam: normal inspection, normal range of motion, warm, well perfused Neurologic: radiation therapist II-XII grossly intact, 5/5 Motor and Sensory Upper and Lower Extremities Results Vital Signs: Vital Signs - 24 hr Temp Pulse Pulse Resp BP BP Pulse Ox 03/07/24 11:41 98.2 F 51 L 20 124/65 96 03/07/24 08:10 46 L 16 95 03/07/24 07:33 98.6 F 46 L 16 91/51 99 03/07/24 04:00 97.7 F 46 L 16 99/56 98 03/07/24 01:00 44 L 16 100 03/07/24 00:48 97.7 F 48 L 16 135/72 100 03/07/24 00:27 100 03/07/24 00:15 47 L 15 100/55 99 03/07/24 00:00 38 L 13 93/60 98 03/06/24 23:52 40 L 03/06/24 23:30 40 L 14 106/57 99 03/06/24 23:01 40 L 8 L 110/67 99 03/06/24 22:39 98.2 F 46 L 15 144/77 100 03/06/24 22:35 38 L 18 144/77 100 Pain Assessment - Last Documented Pain Intensity 4 Pain Scale Used 0-10 Pain Scale Intake and Output: Intake & Output 03/05/24 03/06/24 03/07/24 03/08/24 11:59 11:59 11:59 11:59 Intake Total 240 Balance 240 Weight 45.3 kg LAB: I have reviewed the Labs in [facility]. Radiology Exams: Radiology Procedures Category Date Time Status ECHO W/2D AND DOPPLER [US] Stat Exams 03/07/24 08:06 Taken - ECHO Last ECHO: 03/07/2024 Echo: interpreted by me Multi-Disciplinary Progress Notes: Multi-Disciplinary Progress Notes 03/07/24 05:55 Respiratory Note by Citlalli Sidhu EKG completed this morning, showing slight ST elevation with bradycardic rate of [address] elevation slightly more pronounced than previous EKG. Patient states she is having chest pain/tightness and nausea. RN notified. Initialized on 03/07/24 05:55 - END OF NOTE Assessment & Plan (1) Symptomatic bradycardia Current Visit: Yes Status: Acute Onset Date: ~03/01/23 Assessment & Plan: 28 yo F w/ aforementioned PMHx who presents for evaluation of bradycardia associated with nausea/fatigue/dizziness as a part of her POTS diagnosis. POTS- This is a classically difficult illness to manage given large swings in HR and underlying stressors contributing to autonomic dysfunction and symptom development. My initial suggestion would be to cut back on some of her bradycardia-inducing meds; however, it appears she has already done a trial of this in January without much change in her bradycardic episodes and an uptick in her tachycardia episodes. Perhaps we can cut her ivabradine in half and see how she does. Overall, she needs ongoing and close management by a POTS specialist. Thankfully, she does have such an appointment approximately a month from now. Perhaps we could also see if there is room to get her in sooner. I have also reviewed her echo which is unremarkable for other pathology contributing to her presentation. Code(s): R00.1 - BRADYCARDIA, UNSPECIFIED - Encounter Critical Care Time: No Encounter: "The entirety of this encounter was performed via Telemedicine using audio and visual "
[2024-03-07] MEDS: Compazine 10 MG/2 ML IV PRN (23:27)
[2024-03-08 07:16] VITALS: RESP 16
[2024-03-08 07:20] LABS: Absolute Neutrophil Ct (ANC) 2.54 x10^3/uL (1.56-6.13); BASOPHIL % 0.4 % (0.1-1.2); Basophil (Absolute #) 0.02 x10^3/uL (0.01-0.08); Eosinophil % 1.6 % (0.7-5.8); Eosinophil (Absolute #) 0.08 x10^3/uL (0.04-0.36); Hematocrit 40.6 % (34.1-44.9); Hemoglobin 13.4 g/dL (11.2-15.7); IMMATURE GRAN # 0.01 x10^3u/L (0.001-0.031); IMMATURE GRAN % 0.2 % (0.001-0.429); Lymphocyte (Absolute #) 1.67 x10^3/uL (1.18-3.74); Lymphocytes % 34.4 % (19.3-51.7); Mean Cell Volume 94.9 fL (79.4-94.8); Mean Corpuscular Hemoglobin 31.3 pg (25.6-32.2); Mean Platelet Volume 9.8 fL (9.4-12.3); Monocyte (Absolute #) 0.53 x10^3/uL (0.24-0.86); Monocytes % 10.9 % (4.7-12.5); Neutrophil % 52.5 % (34.0-71.1); Platelet Count 274 x10^3/uL (182-369); Red Blood Count 4.28 x10^6/uL (3.93-5.22); White Blood Count 4.9 x10^3/uL (3.98-10.04)
[2024-03-08 07:41] LABS: ALBUMIN 3.9 g/dL (3.5-5.0); ANION GAP 9.8 MEQ/L (5-15); BILIRUBIN,TOTAL 0.7 mg/dL (0.2-1.3); Creatinine 1 0.69 mg/dL (0.52-1.04); EST GLOMERULAR FILTRATION RATE 120.4 ML/MIN; Potassium 3.8 mmol/L (3.5-5.1); Total Protein 6.8 g/dL (6.3-8.2)
[2024-03-08 08:52] LABS: CRP (C-Reative Protein) Quant <1 mg/L (0-10)
[2024-03-08 11:33] VITALS: BP 107/55; PULSE 56; TEMP 97.5; O2SAT 95
--- NOTE | 2024-03-08 11:41 | PCM.DS ---
Discharge Summary Date of Admission: 03/07/24 00:23 Date of Discharge: 03/08/24 Admitting Physician: PIPPA GREEN MD Consults: Consults on Case 03/07/24 07:23 Consult Cardiology ROUTINE Primary Care Provider: TARIK PERKINS NP Allergies Allergies codeine Allergy (Verified 03/06/24 22:34) mushroom Allergy (Verified 03/06/24 22:34) Hospital Summary - Hospital Course Hospital Course: MS. Mora is a 28 year old female with a pmhx of POTS, anxiety, depression, and PTSD admitted 03/07/24 for evaluation of bradycardia with HR in the 30's with associated dizziness and nausea. Patient was diagnosed with POTS little over a year ago, and has slowly been added on more medications, initially metoprolol, the midodrine, and 3 months ago ivabradine. She feels like she had the best improvement after starting the ivabradine. She has a baseline heart rate in the 50s, but did not have many episodes of going up into the 180s on that medication regimen. However, starting 5 weeks ago, she began to have episodes of dizziness, nausea, diaphoresis, and dyspnea. She discussed with her launch leader at that time, but noted that there were a lot of anxiety and stressors in her life at that time. However, her symptoms have not improved, and her baseline heart rate has dropped down into the 40s, occasionally into the 30s. She attempted to stop her medications, but her baseline heart rate did not improve, and she again had recurrent episodes of tachycardia up to the 180s. Last week, she saw her PCP when she was having leg edema, and completed a 5-day course of Bumex ending on 03/04, with resolution of her leg edema. However, she continues to have severe constant dizziness with movement associated with nausea. 2 days ago, she had an episode of presyncope where her friend noted that her distal limbs appeared to be blue. Cardiology - Jose Ivy (telecardio) consulted,with recs to decrease ivabradine by half. Discussed case with Dr. Rell Bernabe (EP cardiology) who suggested originally for metoprolol to be discontinued but patient had recently tried this with no improvement of mayank ycardic episodes and increased episodes of tachycardia. He agrees with decreasing the ivabradine for now. Patient has an appt already scheduled in March for which we will attempt to move up for patient. Midodrine increased to 10mg TID. Labs also drawn to r/o addisons/lupus - these are send outs and will need follow up with her PCP. Discharge Note New Diagnosis: Bradycardia New Medications: Decrease ivabradine dose to 2.5mg bid, midodrine increased to 10mg TID Follow Up: Cardiology EP - PCP Results pending: Labs for Fernando/lupus - follow up with PCP Latest Assessment & Plan (1) Symptomatic bradycardia Current Visit: Yes Status: Acute Assessment & Plan: 28-year-old woman with history of POTS and anxiety/depression/PTSD, who presents with symptomatic bradycardia. ## Bradycardia, POTSthe hallmark of POTS is labile heart rate with over heightened autonomic response. In this patient, it appears she had good control of her tachycardic response on her regimen of metoprolol, midodrine, and ivabradine. However, she has now developed symptomatic bradycardia, with a resting heart rate in the high 30s to low 40s. Stopping her medications completely appears to have worsened her intermittent tachycardia. However, she is not tolerating the bradycardia the way she was previously. There are no obvious changes in her environment, diet, or comorbidities that would seem to explain this. However, POTS is difficult as emotional stressors can have a large impact on the autonomic dysregulation that is the heart of the disease, and these stressors are variable by nature. Admit to observation, monitor under telemetry Will hold metoprolol and ivabradine for now I suspect patient will need some of the medication for control of her tachycardic response, and can consider decreasing her ivabradine to 2.5 mg twice daily. Consider telemetry cardiology consultation in the morning if heart rate not improving. Continue home midodrine ## Anxiety and depression currently appear to be fairly well-controlled. Continue home lurasidone 20 mg daily, BuSpar 5 mg daily I spent 35 minutes [id number] with the patient on the day of discharge performing discharge exam, discussing hospital stay and discharge instructions with patient and caregivers, preparation of discharge records, prescriptions & referral forms and addressing any questions/concerns the patient had as documented above. - Vitals & Intake/Output Vital Signs: Vital Signs Temperature 97.7 F 03/08/24 07:00 Pulse Rate 57 L 03/08/24 07:15 Respiratory Rate 16 03/08/24 07:15 Blood Pressure 106/55 03/08/24 07:00 O2 Sat by Pulse Oximetry 99 03/08/24 07:15 Intake & Output: Intake & Output 03/05/24 03/06/24 03/07/24 03/08/24 11:59 11:59 11:59 11:59 Intake Total 240 1934 Balance 240 193 Weight 45.3 kg - Lab Result Diagrams: 03/08/24 07:10 03/08/24 07:10 Lab Results-Last 24 Hrs: Lab Results-Last 24 Hours 03/07/24 03/07/24 03/07/24 Range/Units 12:41 12:41 12:41 WBC (3.98-10.04) x10^3/uL RBC (3.93-5.22) x10^6/uL Hgb (11.2-15.7) g/dL Hct (34.1-44.9) % MCV (79.4-94.8) fL MCH (25.6-32.2) pg MCHC (32.2-35.5) g/dL RDW (11.7-14.4) % Plt Count (182-369) x10^3/uL MPV (9.4-12.3) fL Gran % (34.0-71.1) % Immature Gran % (Auto) (0.001-0.429) % Nucleat RBC Rel Count (0.00-0.2) % Eos # (Auto) (0.04-0.36) x10^3/uL Immature Gran # (Auto) (0.001-0.031) x10^3u/L Absolute Lymphs (auto) (1.18-3.74) x10^3/uL Absolute Monos (auto) (0.24-0.86) x10^3/uL Absolute Nucleated RBC (0.00-0.012) x10^3u/L Lymphocytes % (19.3-51.7) % Monocytes % (4.7-12.5) % Eosinophils % (0.7-5.8) % Basophils % (0.1-1.2) % Absolute Granulocytes (1.56-6.13) x10^3/uL Basophils # (0.01-0.08) x10^3/uL ESR 3 (0-20) mm/hr Sodium (135-145) mmol/L Potassium (3.5-5.1) mmol/L Chloride (98-107) mmol/L Carbon Dioxide (22-30) mmol/L Anion Gap (5-15) MEQ/L BUN (7-17) mg/dL Creatinine (0.52-1.04) mg/dL Estimated GFR ML/MIN Glucose (74-106) mg/dL Calcium (8.4-10.2) mg/dL Total Bilirubin (0.2-1.3) mg/dL AST (14-36) U/L ALT (0-35) U/L Alkaline Phosphatase (38-126) U/L C-Reactive Prot, Quant <1 (0-10) mg/L Serum Total Protein (6.3-8.2) g/dL Albumin (3.5-5.0) g/dL TSH 3rd Generation 1.144 (0.470-4.680) mIU/L Rheumatoid Factor IgG Pending Rheumatoid Factor IgA Pending Rheumatoid Factor IgM Pending KEIKO Titer Pending 03/08/24 03/08/24 Range/Units 07:10 07:10 WBC 4.9 (3.98-10.04) x10^3/uL RBC 4.28 (3.93-5.22) x10^6/uL Hgb 13.4 (11.2-15.7) g/dL Hct 40.6 (34.1-44.9) % MCV 94.9 H (79.4-94.8) fL MCH 31.3 (25.6-32.2) pg MCHC 33.0 (32.2-35.5) g/dL RDW 12.0 (11.7-14.4) % Plt Count 274 (182-369) x10^3/uL MPV 9.8 (9.4-12.3) fL Gran % 52.5 (34.0-71.1) % Immature Gran % (Auto) 0.2 (0.001-0.429) % Nucleat RBC Rel Count 0.0 (0.00-0.2) % Eos # (Auto) 0.08 (0.04-0.36) x10^3/uL Immature Gran # (Auto) 0.01 (0.001-0.031) x10^3u/L Absolute Lymphs (auto) 1.67 (1.18-3.74) x10^3/uL Absolute Monos (auto) 0.53 (0.24-0.86) x10^3/uL Absolute Nucleated RBC 0.00 (0.00-0.012) x10^3u/L Lymphocytes % 34.4 (19.3-51.7) % Monocytes % 10.9 (4.7-12.5) % Eosinophils % 1.6 (0.7-5.8) % Basophils % 0.4 (0.1-1.2) % Absolute Granulocytes 2.54 (1.56-6.13) x10^3/uL Basophils # 0.02 (0.01-0.08) x10^3/uL ESR (0-20) mm/hr Sodium 138 (135-145) mmol/L Potassium 3.8 (3.5-5.1) mmol/L Chloride 109 H (98-107) mmol/L Carbon Dioxide 23 (22-30) mmol/L Anion Gap 9.8 (5-15) MEQ/L BUN 12 (7-17) mg/dL Creatinine 0.69 (0.52-1.04) mg/dL Estimated GFR 120.4 ML/MIN Glucose 92 (74-106) mg/dL Calcium 9.0 (8.4-10.2) mg/dL Total Bilirubin 0.70 (0.2-1.3) mg/dL AST 20 (14-36) U/L ALT 13 (0-35) U/L Alkaline Phosphatase 51 (38-126) U/L C-Reactive Prot, Quant (0-10) mg/L Serum Total Protein 6.8 (6.3-8.2) g/dL Albumin 3.9 (3.5-5.0) g/dL TSH 3rd Generation (0.470-4.680) mIU/L Rheumatoid Factor IgG Rheumatoid Factor IgA Rheumatoid Factor IgM KEIKO Titer - Radiology Exams Ordered Rad Exams-Entire Visit: Radiology Procedures Category Date Time Status ECHO W/2D AND DOPPLER [US] Stat Exams 03/07/24 08:06 Taken - Procedures and Test Procedures and Tests throughout Hospitalization: Therapy Orders & Screens 03/07/24 00:27 EKG REPEAT IN AM Comment: 03/07/24 01:00 Respiratory Therapy Assessment UD Comment: Diagnosis: Symptomatic bradycardia Discharge Exam General Appearance: no apparent distress Neurologic Exam: alert, oriented x 3, cooperative Eye Exam: PERRL Ears, Nose, Throat Exam: normal ENT inspection Neck Exam: normal inspection Respiratory Exam: normal breath sounds, lungs clear Cardiovascular Exam: regular rate/rhythm, normal heart sounds Gastrointestinal/Abdomen Exam: soft, normal bowel sounds Pelvic Exam: deferred Rectal Exam: deferred Back Exam: normal inspection Extremity Exam: normal inspection Skin Exam: pale Final Diagnosis/Problem List - Final Discharge Diagnosis/Problem (1) Symptomatic bradycardia Current Visit: Yes Status: Acute Onset Date: ~03/01/23 Code(s): R00.1 - BRADYCARDIA, UNSPECIFIED (2) POTS (postural orthostatic tachycardia syndrome) Current Visit: Yes Status: Chronic Code(s): G90.A - POSTURAL ORTHOSTATIC TACHYCARDIA SYNDROME [POTS] (3) Anxiety Current Visit: Yes Status: Chronic Code(s): F41.9 - ANXIETY DISORDER, UNSPECIFIED (4) Depression Current Visit: Yes Status: Chronic Code(s): F32.A - DEPRESSION, UNSPECIFIED - Discharge Disposition: Home, Self-Care Condition: Stable Prescriptions: New Midodrine HCl [Proamatine] 10 mg PO TIDWM 30 Days #180 tablet Continue Aspirin EC 81 mg [Ecotrin 81 mg] 81 mg PO DAILY Metoprolol Succinate 25 mg Xl* [Toprol-Xl 25MG Tablets] 25 mg PO BID Lurasidone HCl [Latuda] 20 mg PO DAILY Buspirone HCl 5 mg [Buspar 5 mg] 5 mg PO DAILY Cholecalciferol (Vitamin D3) [Vitamin D3] 125 mcg PO DAILY Changed Ivabradine HCl [Corlanor] 2.5 mg PO BID 30 Days #30 tab Discontinued Midodrine HCl [Proamatine] 5 mg PO TID Follow up with: TARIK PERKINS NP [Primary Care Provider] - 03/20/24 10:00 am CON BERNABE MD [NON-STAFF PHY W/O PRIVILEGES] - 1 Week Forms: Work/School Release Form
[2024-03-09 09:23] LABS: Antinuclear Antiboides, IFA Negative (.)
== END 2024-03-08 12:05 | disposition home or self-care (01) ==
LOC: ED 22:28 → MED SURG 03-07 00:23
PROVIDERS: ADMIT Internal Medicine; ATTEND Internal Medicine
DX: R00.1 Bradycardia, unspecified (principal); G90.A Postural orthostatic tachycardia syndrome [POTS]; F32.A Depression, unspecified; F41.9 Anxiety disorder, unspecified; Z79.899 Other long term (current) drug therapy
CPT/HCPCS: 36000; 36415; 80048; 80053; 81001; 82024; 82533; 82627; 83735; 83880; 84443; 84484; 84703; 85025; 85027; 85652; 86038; 86140; 86431; 93005; 93041; 93306; 94760; 99285; Q3014; 93268; J2405; A9270-GY; G0378

== ENCOUNTER 2025-02-01 20:26 | Emergency (ER) | payer OTHER ==
[2025-02-01 20:45] VITALS: TEMP 99.1
--- NOTE | 2025-02-01 20:53 | ERPHSYRPT ---
- History of Present Illness Time Seen by Provider: 02/01/25 20:42 Source: patient Exam Limitations: no limitations Patient Subjective Stated Complaint: I've was started on duloxetine for my MS, 4 days ago and I took that for 3 days and I started getting a rash and nausea/vomiting. I woke up with a stiff neck and then laid back down and woke up around Noon and my right arm was numb. I ty Triage Nursing Assessment: . Physician History: 29 years old female with history of POTS, ADHD, MS with left started chronic numbness and tingling sensations with started on duloxetine for neuropathic pain 4 days ago, patient broke out into a rash on the chest with hives without itching, stopped taking 2 days ago, still have rash but no progression. She also had nausea vomiting for 2 days which is better now. Patient has not been taking duloxetine since yesterday. This morning she woke up with some stiffness in the neck around 6 AM, took a nap and woke up again around noon with numbness in the right upper extremity and pain behind right eye without any visual changes. Denies any difficulty urination now but did have this morning. Patient reports moderate to severe sharp headache and thoracic spine pain. She was seen at [facility] in [place], was given Toradol and dexamethasone 10 mg shots with no significant relief and still having headache. No weakness or difficulty ambulation. Patient reports usually her symptoms are on the left side. Allergies/Adverse Reactions: duloxetine Allergy (Intermediate, Verified 02/01/25 20:57) Rash codeine Allergy (Verified 03/06/24 22:34) mushroom Allergy (Verified 03/06/24 22:34) Home Medications: Baclofen 10 mg [Lioresal 10 mg] 10 mg PO BIDPRN PRN 02/01/25 [History] Celecoxib 100 mg [celeBREX 100 MG] 200 mg PO BID 02/01/25 [History] Dicyclomine HCl 20 mg [Bentyl 20 mg] 10 mg PO QIDPRN PRN 02/01/25 [History] Fludrocortisone Acetate 0.1 mg PO BID 02/01/25 [History] Propranolol HCl [Inderal ] 10 mg PO BID 02/01/25 [History] Hx Tetanus, Diphtheria Vaccination/Date Given: Yes Hx Influenza Vaccination/Date Given: Yes Hx Pneumococcal Vaccination/Date Given: No Travel Risk - International Travel Have you traveled outside of the country in past 3 weeks: No - Emerging Infectious Disease Are you exhibiting symptoms associated with any current EIDs: No - Review of Systems Constitutional: No Symptoms Eyes: No Symptoms Ears, Nose, & Throat: No Symptoms Respiratory: No Symptoms Cardiac: No Symptoms Abdominal/Gastrointestinal: No Symptoms Genitourinary Symptoms: No Symptoms Musculoskeletal: Back Pain Skin: No Symptoms Neurological: Parasthesia, Sensory Changes Endocrine: No Symptoms Hematologic/Lymphatic: No Symptoms Immunological/Allergic: No Symptoms - Past Medical History Pertinent Past Medical History: Yes Neurological History: Other ENT History: No Pertinent History Cardiac History: Other Respiratory History: No Pertinent History Endocrine Medical History: No Pertinent History Musculoskeletal History: No Pertinent History GI Medical History: No Pertinent History History: No Pertinent History Psycho-Social History: Anxiety, Attention Deficit Disorder, Depression Female Reproductive Disorders: No Pertinent History Other Medical History: MS Justen dx 2023 - Past Surgical History Past Surgical History: Yes Neuro Surgical History: No Pertinent History Cardiac: No Pertinent History Respiratory: No Pertinent History Gastrointestinal: Cholecystectomy Genitourinary: No Pertinent History Musculoskeletal: No Pertinent History Female Surgical History: Dilation & Curettage Significant Family History: other (Maternal grandmother of sudden cardiac arrest at age 42. Mother with coronary disease.) - Female History Hx Now: (unkn) - Social History Smoking Status: Never smoker Exposure to second hand smoke: No Drug Use: none - Social Determinants of Health Will the patient participate in the screening: Yes Do you worry about a steady place to live?: No Do you have any problems with any of the following?: No known problems In the past 12 months,have you had to go without utilities?: No Transportation Issues: No Has anyone in your support network made you feel unsafe?: No Have you or anyone in your house had to go w/o enough food: No - Nursing Vital Signs Nursing Vital Signs: Initial Vital Signs Temperature 99.1 F 02/01/25 20:31 Pulse Rate 131 H 02/01/25 20:31 Respiratory Rate 20 02/01/25 20:31 Blood Pressure 156/103 02/01/25 20:31 O2 Sat by Pulse Oximetry 98 02/01/25 20:31 Pain Scale Pain Intensity [Right Ear] 8 Pain Intensity 4 - Pengilly Coma Scale Best Eye Response (Pengilly): (4) open spontaneously Best Verbal Response (Alana): (5) oriented Best Motor Response (Pengilly): (6) obeys commands Alana Total: 15 - Physical Exam General Appearance: no apparent distress, alert Eye Exam: bilateral eye: normal inspection, PERRL, EOMI Ears, Nose, Throat Exam: normal ENT inspection, TMs normal, pharynx normal, moist mucous membranes Neck Exam: normal inspection, non-tender, supple, full range of motion, No meningismus Respiratory: normal breath sounds, lungs clear Cardiovascular: normal heart sounds, tachycardia Gastrointestinal: soft, normal bowel sounds, tenderness Back Exam: normal inspection, normal range of motion Extremity Exam: normal inspection, normal range of motion, pelvis stable Mental Status: alert, oriented x 3, 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 Exam: normal hearing, normal speech, PERRL Coordination/Gait: normal finger to nose, normal gait, normal cerebellar function Motor/Sensory: no motor deficit, sensory deficit (Decreased sensations of fine touch in all left side and right upper extremity) Skin Exam: normal color SpO2 Interpretation: normal SpO2: 98 O2 Delivery: Room Air Ordered Tests: Active Orders 24 hr Category Date Time Status Automation Qa Tester STAT Care 02/01/25 20:43 Active IV Insertion STAT Care 02/01/25 20:43 Active NPO (ED) STAT Care 02/01/25 20:43 Active HEAD WITHOUT CONTRAST [CT] Stat Exams 02/01/25 20:53 Taken CBC W DIFF Stat Lab 02/01/25 20:55 Completed CMP Stat Lab 02/01/25 20:55 Completed HCG QUALITATIVE, SERUM Stat Lab 02/01/25 20:55 Completed UA W/RFX UR CULTURE Stat Lab 02/01/25 22:51 Ordered Medication Summary Discontinued Medications Generic Name Dose Route Start Last Admin Trade Name Cherrie PRN Reason Stop Dose Admin Acetaminophen 975 mg 02/01/25 20:43 02/01/25 21:07 Acetaminophen 325 Mg Tablet PO 02/01/25 20:44 975 mg STAT ONE Administration Acetaminophen Confirm 02/01/25 21:00 Acetaminophen 325 Mg Tablet Administered 02/01/25 21:01 Dose 975 mg .ROUTE .STK-MED ONE Diphenhydramine HCl 25 mg 02/01/25 20:43 02/01/25 21:05 Diphenhydramine Hcl 50 Mg/Ml Vial IV 02/01/25 20:44 25 mg STAT ONE Administration Diphenhydramine HCl Confirm 02/01/25 21:00 Diphenhydramine Hcl 50 Mg/Ml Vial Administered 02/01/25 21:01 Dose 50 mg .ROUTE .STK-MED ONE Fentanyl Citrate 50 mcg 02/01/25 20:43 02/01/25 21:03 Fentanyl Citrate 100 Mcg/2 Ml* Vial IV 02/01/25 20:44 50 mcg STAT ONE Administration Fentanyl Citrate Confirm 02/01/25 21:00 Fentanyl Citrate 100 Mcg/2 Ml* Vial Administered 02/01/25 21:01 Dose 100 mcg .ROUTE .STK-MED ONE Sodium Chloride 1,000 mls @ 999 mls/hr 02/01/25 20:43 02/01/25 22:02 Sodium Chloride 0.9% 1000 Ml IV 02/01/25 21:43 Infused .Q1H1M STA Infusion Sodium Chloride Confirm 02/01/25 21:00 Sodium Chloride 0.9% 1000 Ml Administered 02/01/25 21:01 Dose 1,000 mls @ ud .ROUTE .STK-MED ONE Metoclopramide HCl 10 mg 02/01/25 20:43 02/01/25 21:06 Metoclopramide Hcl 10 Mg/2 Ml Vial IV 02/01/25 20:44 10 mg STAT ONE Administration Metoclopramide HCl Confirm 02/01/25 21:00 Metoclopramide Hcl 10 Mg/2 Ml Vial Administered 02/01/25 21:01 Dose 10 mg .ROUTE .STK-MED ONE Morphine Sulfate Confirm 02/01/25 21:53 Morphine Sulfate 4 Mg/Ml Injection Administered 02/01/25 21:54 Dose 4 mg .ROUTE .STK-MED ONE Morphine Sulfate 4 mg 02/01/25 21:58 02/01/25 22:00 Morphine Sulfate 4 Mg/Ml Injection IV 02/01/25 21:59 4 mg STAT ONE Administration Lab/Rad Data: Laboratory Result Diagrams 02/01/25 20:55 02/01/25 20:55 Laboratory Results 02/01/25 02/01/25 02/01/25 Range/Units 20:55 20:55 20:55 WBC 5.3 (3.98-10.04) x10^3/uL RBC 4.78 (3.93-5.22) x10^6/uL Hgb 14.7 (11.2-15.7) g/dL Hct 43.8 (34.1-44.9) % MCV 91.6 (79.4-94.8) fL MCH 30.8 (25.6-32.2) pg MCHC 33.6 (32.2-35.5) g/dL RDW 11.6 L (11.7-14.4) % Plt Count 339 (182-369) x10^3/uL MPV 9.4 (9.4-12.3) fL Gran % 91.1 H (34.0-71.1) % Immature Gran % (Auto) 0.2 (0.001-0.429) % Nucleat RBC Rel Count 0.0 (0.00-0.2) % Eos # (Auto) 0 L (0.04-0.36) x10^3/uL Immature Gran # (Auto) 0.01 (0.001-0.031) x10^3u/L Absolute Lymphs (auto) 0.41 L (1.18-3.74) x10^3/uL Absolute Monos (auto) 0.04 L (0.24-0.86) x10^3/uL Absolute Nucleated RBC 0.00 (0.00-0.012) x10^3u/L Lymphocytes % 7.7 L (19.3-51.7) % Monocytes % 0.8 L (4.7-12.5) % Eosinophils % 0.0 L (0.7-5.8) % Basophils % 0.2 (0.1-1.2) % Absolute Granulocytes 4.85 (1.56-6.13) x10^3/uL Basophils # 0.01 (0.01-0.08) x10^3/uL Sodium 138 (135-145) mmol/L Potassium 4.0 (3.5-5.1) mmol/L Chloride 104 (98-107) mmol/L Carbon Dioxide 22 (22-30) mmol/L Anion Gap 16.9 H (5-15) MEQ/L BUN 12 (7-17) mg/dL Creatinine 0.70 (0.52-1.04) mg/dL Estimated GFR 119.2 ML/MIN Glucose 253 H (74-106) mg/dL Calcium 9.5 (8.4-10.2) mg/dL Total Bilirubin 0.40 (0.2-1.3) mg/dL AST 27 (14-36) U/L ALT 23 (0-35) U/L Alkaline Phosphatase 41 (38-126) U/L Serum Total Protein 7.3 (6.3-8.2) g/dL Albumin 4.5 (3.5-5.0) g/dL Serum HCG, Qual NEGATIVE (NEGATIVE) Slides for Path Review YES - Progress Progress: improved Progress Note: 02/01/25 23:14 Differential diagnosis includes but not limited to: Stroke, MS flareup, optic neuritis, migraine, meningitis 29 years old with history of MS is evaluated in the ER for right upper extremity numbness since, pain behind right eyes/headache and back pain. Patient has no focal weakness, intact range of motion of eyeball. She is given symptomatic treatment for headache with Reglan/Benadryl/fentanyl and morphine, on reevaluation her symptoms are improved and feeling back to her baseline. I have obtained CT head stroke protocol which is negative per preliminary report Obtain [facility] neurology consult, Dr. Carey has seen patient, do not think she has stroke but more of a demyelinating lesion causing her symptoms and recommended symptomatic/supportive care and outpatient follow-up with primary neurologist and auto mechanic to rule out optic neuritis for right eye pain. Workup showed normal white count, chemistries fairly unremarkable. Patient is feeling back to her baseline, she is being discharged and will give her pain medications to go home to take as needed and discussed the results of workup and recommendations of neurology which she seems understanding, also discussed signs symptoms of worsening needing return to ER which she seems understanding as well. Stable for discharge. Complexity of problems addressed: High acuity Complexity of data reviewed/analyzed: Extensive Risk of complication: Low to moderate Discussed with Dr.: Other (Dr. Carey [facility] neurology) Counseled pt/family regarding: diagnosis, need for follow-up, rad results Medical Desision Making - Discussion of managment Care discussed with:: specialist ([facility] neurology Dr. Carey) Reviewed:: Test results Agreed on:: Treatment plan, need for follow-up Will see patient: in ED - Diagnostic Testing Diagnostic test were ordered, analyzed, and reviewed by me: Yes Radiological Interpretation: Reviewed by me, Teleradiologist Report - Risk of complications The pt has a mod risk of morbidity or mortality based on: Need for prescription drug management - Departure Departure Disposition: Home Clinical Impression: Demyelinating disease, Paresthesia of arm, Back pain Condition: Stable Critical Care Time: No Referrals: CEZAR WONG DO [Primary Care Provider, [facility]] - Follow up with PCP 1 day Instructions: Multiple sclerosis relapse in adults - Discharge instructions Additional Instructions: Take pain medications as needed. Follow-up with your primary care and also needs to see your neurologist and specially auto mechanic auto mechanic in 1 to 2 days for eye exam to rule out optic neuritis. Return to ER for worsening of pain or if having visual changes, weakness, loss of bladder control etc. Prescriptions: Hydrocodone/Acetaminophen [Hydrocodone-Acetamin 5-325 mg] 1 tab PO Q6HPRN PRN 3 Days #12 tablet MDD 4 PRN Reason: Pain
[2025-02-01] MEDS ORDERED: TYLENOL 325 MG ONE (21:00)
[2025-02-01] MEDS ORDERED: Sodium Chloride 0.9% 1000 ML 1,000 ML ONE (21:00)
[2025-02-01] MEDS ORDERED: Reglan 10 MG/2 ML ONE (21:00)
[2025-02-01] MEDS ORDERED: BENADRYL 50 MG/ML ONE (21:00)
[2025-02-01] MEDS ORDERED: SUBLIMAZE 100 MCG/2 ML ONE (21:00)
[2025-02-01] MEDS: Sodium Chloride 0.9% 1000 ML 1,000 ML IV STA (21:02)
[2025-02-01 21:03] LABS: Absolute Neutrophil Ct (ANC) 4.85 x10^3/uL (1.56-6.13); BASOPHIL % 0.2 % (0.1-1.2); Basophil (Absolute #) 0.01 x10^3/uL (0.01-0.08); Eosinophil (Absolute #) 0 x10^3/uL (0.04-0.36); Hematocrit 43.8 % (34.1-44.9); Hemoglobin 14.7 g/dL (11.2-15.7); IMMATURE GRAN # 0.01 x10^3u/L (0.001-0.031); IMMATURE GRAN % 0.2 % (0.001-0.429); Lymphocyte (Absolute #) 0.41 x10^3/uL (1.18-3.74); Lymphocytes % 7.7 % (19.3-51.7); Mean Cell Volume 91.6 fL (79.4-94.8); Mean Corpuscular Hemoglobin 30.8 pg (25.6-32.2); Mean Corpuscular Hgb Concent. 33.6 g/dL (32.2-35.5); Mean Platelet Volume 9.4 fL (9.4-12.3); Monocyte (Absolute #) 0.04 x10^3/uL (0.24-0.86); Monocytes % 0.8 % (4.7-12.5); Neutrophil % 91.1 % (34.0-71.1); Platelet Count 339 x10^3/uL (182-369); Red Blood Count 4.78 x10^6/uL (3.93-5.22); Red Cell Distribution Width 11.6 % (11.7-14.4); White Blood Count 5.3 x10^3/uL (3.98-10.04)
[2025-02-01] MEDS: SUBLIMAZE 100 MCG/2 ML IV ONE (21:03)
[2025-02-01] MEDS: BENADRYL 50 MG/ML IV ONE (21:05)
[2025-02-01] MEDS: Reglan 10 MG/2 ML IV ONE (21:06)
[2025-02-01] MEDS: TYLENOL 325 MG PO ONE (21:07)
[2025-02-01 21:10] VITALS: RESP 14
[2025-02-01 21:19] LABS: ALBUMIN 4.5 g/dL (3.5-5.0); ANION GAP 16.9 MEQ/L (5-15); BILIRUBIN,TOTAL 0.4 mg/dL (0.2-1.3); Calcium 9.5 mg/dL (8.4-10.2); Creatinine 1 0.7 mg/dL (0.52-1.04); EST GLOMERULAR FILTRATION RATE 119.2 ML/MIN; Total Protein 7.3 g/dL (6.3-8.2)
[2025-02-01] MEDS ORDERED: MORPHINE SULFATE 4 MG INJ ONE (21:53)
[2025-02-01] MEDS: MORPHINE SULFATE 4 MG INJ IV ONE (22:00)
[2025-02-01 22:09] VITALS: PULSE 45
[2025-02-01 22:14] LABS: HCG SERUM TEST NEGATIVE (NEGATIVE)
[2025-02-01 22:38] LABS: Slide Review 1 YES
[2025-02-01 23:01] VITALS: BP 94/59
[2025-02-01 23:11] VITALS: O2SAT 98
[2025-02-01 23:15] LABS: Appearance Clear (Clear); Bacteria None Seen /HPF (None Seen); Bilirubin Negative (Negative); Blood Negative (Negative); Epithelial Cells None Seen /HPF (None Seen); Glucose, Urine >=1000 mg/dL (Negative); Hyaline Casts NONE SEEN /LPF (0-2); Ketones Trace (Negative); Leukocyte Esterase Negative (Negative); Nitrite Negative (Negative); Ph 6.5 (4.6-8.0); Protein,Urine Dip Negative (Negative); RBC 0-2 /HPF (0-5); Specific Gravity >=1.030 (1.005-1.030); WBC 0-2 /HPF (0-5)
--- NOTE | 2025-02-02 08:39 | XRAY ---
Indication: Right-sided numbness. Headache. Stroke. Multiple contiguous axial images obtained through the head without contrast. Comparison: None Normal appearing brain parenchyma, ventricles, and bony calvarium. Visualized paranasal sinuses and mastoid air cells are clear. Impression: Normal CT head without contrast exam.
== END 2025-02-01 23:25 | disposition home or self-care (01) ==
LOC: ED 20:26
DX: G37.9 Demyelinating disease of central nervous system, unspecified (principal); R20.2 Paresthesia of skin; H57.11 Ocular pain, right eye; M54.6 Pain in thoracic spine; G35 Multiple sclerosis; R51.9 Headache, unspecified; Z79.891 Long term (current) use of opiate analgesic; Z79.899 Other long term (current) drug therapy
CPT/HCPCS: 36415; 70450; 80053; 81001; 84703; 85025; 93041; 96361; 96374; 96375; 99284; Q3014; J1200; J2270; J3010; A9270-GY